=== PATIENT | female | born 1950 ===

== ENCOUNTER 2022-01-19 09:00 | Inpatient (IN) | payer OTHER ==
[~2022-01-19] VITALS: Ht 154.9 cm; Wt 66.7 kg
[2022-01-19] MEDS ORDERED: COZAAR100 MG PO (10:22)
[2022-01-19] MEDS ORDERED: SYNTHROID75 MCG PO (10:23)
[2022-01-27] MEDS ORDERED: INTEGRA PLUS C1 EACH PO (06:27)
[2022-01-27] MEDS ORDERED: BACTRIM DS TAB1 EACH PO (06:27)
[2022-01-27] MEDS ORDERED: OXYC1TAB9 PO (06:27)
[2022-01-27] MEDS ORDERED: XARELTO10 MG PO (06:27)
== END 2022-01-27 12:25 | DRG 470 ==
LOC: ADM 09:00 → O/R 01-25 07:53 → EDSTATUS 01-25 09:00 → SURH 01-25 09:00 → CIR.AMB 01-25 09:00 → SURH 01-25 10:30
PROVIDERS: ADMIT Orthopaedic Surgery Sports Medicine; ATTEND Orthopaedic Surgery Sports Medicine
PROC: 0SRC0J9 Replacement of Right Knee Joint with Synthetic Substitute, Cemented, Open Approach (ICD-10-PCS; principal; 2022-01-25 10:30)
DX: M17.11 Unilateral primary osteoarthritis, right knee (principal); I10 Essential (primary) hypertension; E03.9 Hypothyroidism, unspecified; Z96.651 Presence of right artificial knee joint; Z20.822 Contact with and (suspected) exposure to COVID-19